=== PATIENT | female | born 1990 | race Caucasian/White ===

== ENCOUNTER 2016-11-11 10:21 | Outpatient (CLI) | payer OTHER ==
[2016-11-11 13:34] LABS: THYROID STIMULATING HORMONE 0.53 uIU/mL (0.34-5.60)
== END 2016-11-11 10:22 | disposition home or self-care (01) ==
LOC: LAB.N 10:21
PROVIDERS: ATTEND Physician Assistant Medical
DX: E03.9 Hypothyroidism, unspecified (principal); Z79.899 Other long term (current) drug therapy
CPT/HCPCS: 36415; 84439; 84443; 84481

== ENCOUNTER 2017-01-10 18:54 | Outpatient (CLI) | payer OTHER ==
--- NOTE | 2017-01-11 10:00 | Ultrasound Report ---
THYROID ULTRASOUND: 01/10/2017 CLINICAL INDICATION: Increasing prominence of thyroid gland, known nodule in the isthmus. TECHNIQUE: Real-time scanning was performed with medical customer service representative static images obtained. COMPARISON: 10/05/2015 FINDINGS: The right lobe measures 4.7 x 1.8 x 1.7 cm, and the left lobe measures 3.7 x 1.6 x 1.3 cm. The isthmus measures 8 mm. The nodule arising from the isthmus now measures 1.9 x 1.9 x 0.9 cm (pr eviously 1.9 x 1.9 x 1.0 cm). Both lobes demonstrate homogeneous echotexture. No new nodule is seen . IMPRESSION: SLIGHT INTERVAL DECREASE IN SIZE OF BOTH LOBES OF THE THYROID. STABLE ISTHMUS NODULE. NO NEW NODULE IS IDENTIFIED. JOB #: [id number] EXT JOB #:[id number]
== END 2017-01-10 18:55 | disposition home or self-care (01) ==
LOC: DI 18:54
PROVIDERS: ATTEND Physician Assistant Medical
DX: E04.1 Nontoxic single thyroid nodule (principal)
CPT/HCPCS: 76536